=== PATIENT | female | born 1940 | race Caucasian/White ===

== ENCOUNTER 2018-05-10 20:22 | Emergency (ER) | payer OTHER ==
[~2018-05-10] VITALS: Ht 154.9 cm; Wt 81.6 kg
[~2018-05-10 20:22] MED LIST: TRAM50TA92 PO
[2018-05-10 20:30] VITALS: BP_SYST 127
--- NOTE | 2018-05-10 21:05 | NUR ---
Patient to ER hallway bed for evaluation. Side rails up. Report given to Tori CUETO.
--- NOTE | 2018-05-10 21:10 | NUR ---
Patient BIB son to ED to be evaluated for redness and pain to R eye, 03/07. The patient states that she felt a sharp pain to her right eye while cooking. Pt denies vision changes, no headache, no N&V. No SOB or acute distress noted. Pt VSS. No other complaints at this time. Will continue to monitor
--- NOTE | 2018-05-10 21:10 | NUR ---
Note mary in EDM - 05/11/18 at 0058 by ZAHIRA Patient BIB son to ED to be evaluated for redness and pain to R eye. The patient states that she felt a sharp pain to her right eye while cooking. Pt denies vision changes, no N&V. No SOB or acute distress noted. No other complaints at this time. Will continue to monitor.
--- NOTE | 2018-05-10 21:31 | NUR ---
ER Dr. Bacon at bedside examining patient.
[2018-05-10 22:09] LABS: PROTHROMBIN TIME 38.4 SECS (9.5-12.5)
[2018-05-10 22:10] LABS: INR 3.7 (0.8-1.2)
--- NOTE | 2018-05-10 22:20 | NUR ---
Patient resting quietly in bed. Pt denies SOB or any discomfort. No SOB or acute distress noted. Pt's son at bedside. Will continue to monitor.
[2018-05-10 23:20] VITALS: BP_SYST 118
--- NOTE | 2018-05-10 23:20 | NUR ---
Patient given written and verbal discharge instructions and verbalizes understanding. ER MD discussed with patient the results and treatment provided. Patient in stable condition. ID arm band removed. Patient educated on pain management and to follow up with PMD. Pain Scale 3/10, pain tolerable per pt. Opportunity for questions provided and answered.
== END 2018-05-10 23:20 | disposition home or self-care (01) ==
LOC: SED 20:22
DX: K21.9 Gastro-esophageal reflux disease without esophagitis (principal); Z87.01 Personal history of pneumonia (recurrent); Z88.6 Allergy status to analgesic agent; Z88.5 Allergy status to narcotic agent; Z88.0 Allergy status to penicillin
CPT/HCPCS: 36415; 70450-TC; 85610-TC; 99285

== ENCOUNTER 2018-05-26 12:40 | Emergency (ER) | payer OTHER ==
[~2018-05-26] VITALS: Ht 162.6 cm; Wt 87.5 kg
[2018-05-26 12:51] VITALS: BP_SYST 128
[2018-05-26 13:36] LABS: BILIRUBIN,URINE NEGATIVE (NEGATIVE); BLOOD, URINE 3+ (NEGATIVE); CLARITY/URINE CLEAR (CLEAR); COLOR,URINE YELLOW (YELLOW); GLUCOSE,URINE TRACE (NEGATIVE); KETONES,URINE NEGATIVE (NEGATIVE); LEUKOCYTE ESTERASE ,URINE 2+ (NEGATIVE); NITRITE, URINE POSITIVE (NEGATIVE); PROTEIN URINE 2+ (NEGATIVE)
[2018-05-26] MEDS ORDERED: IBUPROFEN 600 MG TABLET PO ONE (13:45)
[2018-05-26 13:46] LABS: BACTERIA,URINE MANY /HPF (None Seen); RBC,URINE 50-80 /HPF (0-3); WBC,URINE 80-100 /HPF (0-3)
[2018-05-26 13:47] LABS: MUCUS,URINE None Seen /LPF (None Seen); YEAST,URINE None Seen /HPF (None Seen)
[2018-05-26] MEDS ORDERED: cefTRIAXone 1 GM VIAL IM ONE (14:00)
[2018-05-26] MEDS ORDERED: LIDOCAINE 1%, 20 ML MDV 20 ML ONE (14:07)
[2018-05-26 14:30] VITALS: BP_SYST 112
== END 2018-05-26 14:30 | disposition home or self-care (01) ==
LOC: SED 12:40
DX: N39.0 Urinary tract infection, site not specified (principal); K21.9 Gastro-esophageal reflux disease without esophagitis; R03.0 Elevated blood-pressure reading, without diagnosis of hypertension; M19.90 Unspecified osteoarthritis, unspecified site; Z88.0 Allergy status to penicillin; Z88.5 Allergy status to narcotic agent; Z88.6 Allergy status to analgesic agent
CPT/HCPCS: 81000; 87086; 96372; 99284; J0696; J2001; 87186-TC

== ENCOUNTER 2019-03-14 14:40 | Emergency (ER) | payer OTHER ==
[~2019-03-14] VITALS: Ht 162.6 cm; Wt 84.8 kg
[2019-03-14 15:21] VITALS: BP_SYST 123
[2019-03-14 18:01] VITALS: BP_SYST 123
== END 2019-03-14 18:00 | disposition home or self-care (01) ==
LOC: SED 14:40
DX: T18.9XXA Foreign body of alimentary tract, part unspecified, initial encounter (principal); K21.9 Gastro-esophageal reflux disease without esophagitis; E78.00 Pure hypercholesterolemia, unspecified; J18.9 Pneumonia, unspecified organism; Z88.0 Allergy status to penicillin; Z88.5 Allergy status to narcotic agent; Z88.6 Allergy status to analgesic agent; X58.XXXA Exposure to other specified factors, initial encounter; Y93.89 Activity, other specified; Y92.89 Other specified places as the place of occurrence of the external cause; Y99.8 Other external cause status
CPT/HCPCS: 72170-TC; 74021; 99283

== ENCOUNTER 2021-08-02 14:21 | Emergency (ER) | payer OTHER, SELFPAY ==
[~2021-08-02] VITALS: Ht 167.6 cm; Wt 90.7 kg
[2021-08-02 14:35] VITALS: BP_SYST 108
--- NOTE | 2021-08-02 14:35 | NUR ---
Patient triaged and placed in waiting room. VSS and patient appears in no acute distress at this time. Accompanied by FAMILY, awaiting available bed, and MD notified of need for MSE.
--- NOTE | 2021-08-02 14:45 | NUR ---
PT STATES SHE TESTED POSITIVE FOR COVID LAST NIGHT AND WOULD LIKE ANOTHER TEST TODAY. PT STATES SHE HAS A COUGH, EXPLAINED TO PT THAT SINCE IT READ POSITIVE, THAT SHE IS POSITIVE. PT DEMANDING TO HAVE ANOTHER TEST. WHOLE FAMILY IS HERE FOR SAME.
--- NOTE | 2021-08-02 17:47 | NUR ---
AWAITING TO BE SEEN BY MD, NO NEW COMPLAINTS
--- NOTE | 2021-08-02 21:30 | NUR ---
Called patient in, no answer. Patient left without being seen. ER MD aware
== END 2021-08-02 21:30 | disposition left against medical advice (07) ==
LOC: SED 14:21
DX: R05.9 Cough, unspecified (principal); Z53.21 Procedure and treatment not carried out due to patient leaving prior to being seen by health care provider

== ENCOUNTER 2022-08-16 14:49 | Emergency (ER) | payer OTHER ==
[~2022-08-16] VITALS: Ht 165.1 cm; Wt 79.4 kg
[2022-08-16 14:59] VITALS: BP_SYST 142
[2022-08-16] MEDS ORDERED: KETOROLAC TROMETHAMINE 60 MG/2 ML VIAL IM ONE (16:00)
[2022-08-16] MEDS ORDERED: HYDROcodone/ACETAMIN 7.5-325 MG TAB PO ONE (16:00)
[2022-08-16 16:32] LABS: BASOPHILS % (AUTO) 0.9 % (0.0-2.0); EOSINOPHILS # (AUTO) 0.1 K/uL (0.0-0.4); EOSINOPHILS % (AUTO) 1.8 % (0.0-4.0); HEMATOCRIT 24.2 % (36-48); HEMOGLOBIN 7.4 g/dL (12.0-16.0); LYMPHOCYTES # (AUTO) 1.3 K/uL (1.0-5.5); LYMPHOCYTES % (AUTO) 25.3 % (20.5-51.5); MEAN CORPUSCULAR HEMOGLOBIN 23 pg (27-31); MEAN CORPUSCULAR HGB CONC 31 % (32-36); MEAN CORPUSCULAR VOLUME 74 fL (79.0-98.0); MONOCYTES # (AUTO) 0.5 K/uL (0.0-1.0); NEUTROPHILS # (AUTO) 3.1 K/uL (1.8-7.7); PLATELET COUNT (AUTO) 307 K/uL (130-430); RED BLOOD CELL COUNT(AUTO) 3.28 MIL/uL (4.2-6.2); RED CELL DISTRIBUTION WIDTH 20.8 % (9.0-15.0); WHITE BLOOD COUNT (AUTO) 4.9 K/uL (4.8-10.8)
[2022-08-16 16:56] LABS: ANION GAP 6 (5-15); CALCIUM 8.7 mg/dL (8.4-11.0); CHLORIDE 108 mmol/L (98-107); CREATININE 0.99 mg/dL (0.55-1.30); GLUCOSE 127 mg/dL (70-99); UREA NITROGEN, BLOOD 21 mg/dL (8-21)
[2022-08-16 17:02] LABS: ALANINE AMINOTRANSFERASE 18 U/L (12-78); ALBUMIN 3.5 g/dL (3.4-4.8); ASPARTATE AMINOTRANSFERASE 19 U/L (10-37); TOTAL BILIRUBIN 0.4 mg/dL (0.0-1.0)
[2022-08-16 17:08] LABS: C-REACTIVE PROTEIN QUANT < 0.2 mg/dL (0-0.5); ERYTHROCYTE SEDIMENTATION RATE 25 MM/HR (0-20)
[2022-08-16] MEDS ORDERED: HYDR-3917 PO (17:37)
[2022-08-16] MEDS ORDERED: HYDR-3921 PO (17:42)
[2022-08-16 17:51] VITALS: BP_SYST 142
== END 2022-08-16 17:51 | disposition home or self-care (01) ==
LOC: SED 14:49
DX: S23.3XXA Sprain of ligaments of thoracic spine, initial encounter (principal); K21.9 Gastro-esophageal reflux disease without esophagitis; Z88.0 Allergy status to penicillin; Z88.5 Allergy status to narcotic agent; Z79.899 Other long term (current) drug therapy; X58.XXXA Exposure to other specified factors, initial encounter; Y93.89 Activity, other specified; Y92.89 Other specified places as the place of occurrence of the external cause; Y99.8 Other external cause status
CPT/HCPCS: 99285; 71250; 80053; 85025; 85651; 86140; 84484; 36415; 76376; 96372; J1885

== ENCOUNTER 2022-08-18 13:53 | Emergency (ER) | payer OTHER ==
[~2022-08-18] VITALS: Ht 165.1 cm; Wt 83.9 kg
[~2022-08-18 13:53] MED LIST changes: +HYDR-3917 PO; +HYDR-3921 PO
[2022-08-18 14:49] VITALS: BP_SYST 124
[2022-08-18 15:50] LABS: BASOPHILS % (AUTO) 0.8 % (0.0-2.0); EOSINOPHILS # (AUTO) 0.1 K/uL (0.0-0.4); EOSINOPHILS % (AUTO) 3.3 % (0.0-4.0); HEMATOCRIT 23.4 % (36-48); MEAN CORPUSCULAR HEMOGLOBIN 23 pg (27-31); MEAN CORPUSCULAR HGB CONC 31 % (32-36); MEAN CORPUSCULAR VOLUME 73 fL (79.0-98.0); MONOCYTES # (AUTO) 0.4 K/uL (0.0-1.0); MONOCYTES % (AUTO) 11.7 % (1.7-9.3); NEUTROPHILS % (AUTO) 56.2 % (40.0-70.0); PLATELET COUNT (AUTO) 300 K/uL (130-430); RED CELL DISTRIBUTION WIDTH 20.6 % (9.0-15.0); WHITE BLOOD COUNT (AUTO) 3.6 K/uL (4.8-10.8)
[2022-08-18 15:52] LABS: ANION GAP 5 (5-15); CALCIUM 8.4 mg/dL (8.4-11.0); CHLORIDE 109 mmol/L (98-107); CREATININE 1.07 mg/dL (0.55-1.30); GLUCOSE 125 mg/dL (70-99); UREA NITROGEN, BLOOD 16 mg/dL (8-21)
[2022-08-18 15:57] LABS: HEMOGLOBIN 7.2 g/dL (12.0-16.0)
[2022-08-18 15:58] LABS: ALANINE AMINOTRANSFERASE 19 U/L (12-78); ALBUMIN 3.5 g/dL (3.4-4.8); ASPARTATE AMINOTRANSFERASE 18 U/L (10-37); TOTAL BILIRUBIN 0.5 mg/dL (0.0-1.0)
[2022-08-18 16:00] LABS: INR 3.2 (0.8-1.2)
[2022-08-19 00:06] VITALS: BP_SYST 138
== END 2022-08-19 00:06 | disposition home or self-care (01) ==
LOC: SED 13:53
DX: D50.9 Iron deficiency anemia, unspecified (principal); D72.819 Decreased white blood cell count, unspecified; R10.11 Right upper quadrant pain; K21.9 Gastro-esophageal reflux disease without esophagitis; Z88.0 Allergy status to penicillin; Z88.5 Allergy status to narcotic agent; Z79.01 Long term (current) use of anticoagulants; Z79.899 Other long term (current) drug therapy
CPT/HCPCS: 99285; 36430; 80053; 85025; 85610; 85730; 86886; 86900; 86901; 86920; 36415; P9021

== ENCOUNTER 2022-11-14 16:11 | Emergency (ER) | payer OTHER ==
[~2022-11-14] VITALS: Ht 167.6 cm; Wt 84.4 kg
[~2022-11-14 16:11] MED LIST changes: -HYDR-3917 PO
[2022-11-14 16:21] VITALS: BP_SYST 146
[2022-11-14 17:08] LABS: BASOPHILS % (AUTO) 0.8 % (0.0-2.0); EOSINOPHILS # (AUTO) 0.1 K/uL (0.0-0.4); EOSINOPHILS % (AUTO) 2.5 % (0.0-4.0); HEMATOCRIT 31.6 % (36-48); HEMOGLOBIN 10.1 g/dL (12.0-16.0); LYMPHOCYTES # (AUTO) 0.9 K/uL (1.0-5.5); LYMPHOCYTES % (AUTO) 23.9 % (20.5-51.5); MEAN CORPUSCULAR HEMOGLOBIN 26 pg (27-31); MEAN CORPUSCULAR HGB CONC 32 % (32-36); MEAN CORPUSCULAR VOLUME 81 fL (79.0-98.0); MONOCYTES # (AUTO) 0.4 K/uL (0.0-1.0); MONOCYTES % (AUTO) 10.9 % (1.7-9.3); NEUTROPHILS # (AUTO) 2.3 K/uL (1.8-7.7); NEUTROPHILS % (AUTO) 61.9 % (40.0-70.0); PLATELET COUNT (AUTO) 186 K/uL (130-430); RED BLOOD CELL COUNT(AUTO) 3.89 MIL/uL (4.2-6.2); RED CELL DISTRIBUTION WIDTH 27.4 % (9.0-15.0); WHITE BLOOD COUNT (AUTO) 3.8 K/uL (4.8-10.8)
[2022-11-14 17:09] LABS: ANION GAP 5 (5-15); CALCIUM 8.2 mg/dL (8.4-11.0); CHLORIDE 106 mmol/L (98-107); CREATININE 1.17 mg/dL (0.55-1.30); GLUCOSE 137 mg/dL (70-99); UREA NITROGEN, BLOOD 24 mg/dL (8-21)
[2022-11-14 17:24] LABS: ALANINE AMINOTRANSFERASE 20 U/L (12-78); ALBUMIN 3.5 g/dL (3.4-4.8); ASPARTATE AMINOTRANSFERASE 16 U/L (10-37); TOTAL BILIRUBIN 0.4 mg/dL (0.0-1.0)
[2022-11-14 17:55] LABS: PROTHROMBIN TIME 19.7 SECS (9.5-12.5)
[2022-11-14 19:30] VITALS: BP_SYST 135
[2022-11-14] MEDS ORDERED: IBUPROFEN 600 MG TABLET PO ONE (19:30)
== END 2022-11-14 19:30 | disposition home or self-care (01) ==
LOC: SED 16:11
DX: R07.81 Pleurodynia (principal); M54.50 Low back pain, unspecified; K21.9 Gastro-esophageal reflux disease without esophagitis; Z88.0 Allergy status to penicillin; Z88.5 Allergy status to narcotic agent; Z79.899 Other long term (current) drug therapy; W01.0XXA Fall on same level from slipping, tripping and stumbling without subsequent striking against object, initial encounter; Y93.89 Activity, other specified; Y92.89 Other specified places as the place of occurrence of the external cause; Y99.8 Other external cause status
CPT/HCPCS: 36415; 70450-TC; 71100; 76376; 80053; 85025; 85610-TC; 99284

== ENCOUNTER 2024-01-16 14:50 | Emergency (ER) | payer OTHER ==
[~2024-01-16] VITALS: Ht 157.5 cm; Wt 83.9 kg
[2024-01-16 14:50] VITALS: BP_SYST 155; PULSE 76; RESP 20; TEMP 97.1; O2SAT 97
[~2024-01-16 14:50] MED LIST changes: +ATOR10TA68 PO; +DOXY100C5 PO; +DULO60CA65 PO; -HYDR-3921 PO; +PANT40TA45 PO; -TRAM50TA92 PO; +VIS10 PO; +WARF-52 PO
[2024-01-16 15:49] LABS: BASOPHILS % (AUTO) 1.2 % (0.0-2.0); EOSINOPHILS # (AUTO) 0.1 K/uL (0.0-0.4); EOSINOPHILS % (AUTO) 2.1 % (0.0-4.0); HEMATOCRIT 26.5 % (36-48); HEMOGLOBIN 8.4 g/dL (12.0-16.0); LYMPHOCYTES # (AUTO) 1.1 K/uL (1.0-5.5); LYMPHOCYTES % (AUTO) 30.5 % (20.5-51.5); MEAN CORPUSCULAR HEMOGLOBIN 24 pg (27-31); MEAN CORPUSCULAR HGB CONC 32 % (32-36); MEAN CORPUSCULAR VOLUME 76 fL (79.0-98.0); MONOCYTES # (AUTO) 0.4 K/uL (0.0-1.0); MONOCYTES % (AUTO) 11.5 % (1.7-9.3); NEUTROPHILS # (AUTO) 1.9 K/uL (1.8-7.7); NEUTROPHILS % (AUTO) 54.7 % (40.0-70.0); PLATELET COUNT (AUTO) 254 K/uL (130-430); RED BLOOD CELL COUNT(AUTO) 3.49 MIL/uL (4.2-6.2); RED CELL DISTRIBUTION WIDTH 18.4 % (9.0-15.0); WHITE BLOOD COUNT (AUTO) 3.5 K/uL (4.8-10.8)
[2024-01-16 15:58] LABS: ANION GAP 8 (5-15); CALCIUM 8.4 mg/dL (8.4-11.0); CARBON DIOXIDE 26 mmol/L (23-29); CHLORIDE 106 mmol/L (98-107); GLUCOSE 115 mg/dL (74-106); POTASSIUM 3.9 mmol/L (3.5-5.1); SODIUM SERUM 140 mmol/L (136-145); UREA NITROGEN, BLOOD 17 mg/dL (8-21)
[2024-01-16 17:50] LABS: INR 1.5 (0.8-1.2); PROTHROMBIN TIME 15.1 SECS (9.5-12.5)
[2024-01-16 18:42] LABS: HYPOCHROMASIA 1+
[2024-01-16 18:43] LABS: ANISOCYTOSIS 1+; OVALOCYTES FEW; STOMATOCYTES FEW; TARGET CELLS FEW
[2024-01-17 00:35] VITALS: BP_SYST 139; PULSE 75; RESP 20; TEMP 97; O2SAT 95
== END 2024-01-17 00:35 | disposition home or self-care (01) ==
LOC: SED 14:50
DX: D64.9 Anemia, unspecified (principal); R55 Syncope and collapse; R53.83 Other fatigue; K21.9 Gastro-esophageal reflux disease without esophagitis; I10 Essential (primary) hypertension; Z90.49 Acquired absence of other specified parts of digestive tract; Z88.0 Allergy status to penicillin; Z88.6 Allergy status to analgesic agent; Z88.5 Allergy status to narcotic agent; Z79.899 Other long term (current) drug therapy; Z79.2 Long term (current) use of antibiotics; Z79.02 Long term (current) use of antithrombotics/antiplatelets
CPT/HCPCS: 99285; 36430; 71045; 80048; 83880; 85025; 85610; 85730; 86886; 86900; 86901; 84484; 86920; 36415; 93005; P9021

== ENCOUNTER 2024-02-10 16:11 | Inpatient (IN) | payer OTHER ==
[~2024-02-10] VITALS: Ht 165.1 cm; Wt 88.2 kg
[2024-02-10 16:35] VITALS: BP_SYST 112; PULSE 83; RESP 17; TEMP 97; O2SAT 95
[2024-02-10 17:36] LABS: BASOPHILS % (AUTO) 1.1 % (0.0-2.0); EOSINOPHILS # (AUTO) 0.1 K/uL (0.0-0.4); EOSINOPHILS % (AUTO) 2.4 % (0.0-4.0); HEMATOCRIT 23.6 % (36-48); HEMOGLOBIN 7.6 g/dL (12.0-16.0); LYMPHOCYTES # (AUTO) 1.2 K/uL (1.0-5.5); LYMPHOCYTES % (AUTO) 27.5 % (20.5-51.5); MEAN CORPUSCULAR HEMOGLOBIN 26 pg (27-31); MEAN CORPUSCULAR HGB CONC 32 % (32-36); MEAN CORPUSCULAR VOLUME 80 fL (79.0-98.0); MONOCYTES # (AUTO) 0.5 K/uL (0.0-1.0); MONOCYTES % (AUTO) 10.8 % (1.7-9.3); NEUTROPHILS # (AUTO) 2.6 K/uL (1.8-7.7); NEUTROPHILS % (AUTO) 58.2 % (40.0-70.0); PLATELET COUNT (AUTO) 229 K/uL (130-430); RED BLOOD CELL COUNT(AUTO) 2.93 MIL/uL (4.2-6.2); RED CELL DISTRIBUTION WIDTH 21.6 % (9.0-15.0); WHITE BLOOD COUNT (AUTO) 4.4 K/uL (4.8-10.8)
[2024-02-10 17:48] LABS: ALANINE AMINOTRANSFERASE 20 U/L (12-78); ALBUMIN 3.2 g/dL (3.4-4.8); ANION GAP 9 (5-15); ASPARTATE AMINOTRANSFERASE 25 U/L (10-37); BILIRUBIN,DIRECT 0.1 mg/dL (0.0-0.3); CALCIUM 8.2 mg/dL (8.4-11.0); CARBON DIOXIDE 24 mmol/L (23-29); CHLORIDE 110 mmol/L (98-107); CREATININE 0.89 mg/dL (0.55-1.30); GLUCOSE 108 mg/dL (74-106); LIPASE 47 U/L (16-77); POTASSIUM 4.1 mmol/L (3.5-5.1); SODIUM SERUM 143 mmol/L (136-145); TOTAL BILIRUBIN 0.4 mg/dL (0.0-1.0); TOTAL PROTEIN, SERUM 6.8 g/dL (6.4-8.3); UREA NITROGEN, BLOOD 16 mg/dL (8-21)
[2024-02-10 17:51] LABS: INR 3.9 (0.8-1.2); PROTHROMBIN TIME 38.4 SECS (9.5-12.5)
[2024-02-10 20:22] LABS: BILIRUBIN,URINE NEGATIVE (NEGATIVE); BLOOD, URINE NEGATIVE (NEGATIVE); CLARITY/URINE CLEAR (CLEAR); COLOR,URINE YELLOW (YELLOW); GLUCOSE,URINE NEGATIVE (NEGATIVE); KETONES,URINE NEGATIVE (NEGATIVE); LEUKOCYTE ESTERASE ,URINE NEGATIVE (NEGATIVE); NITRITE, URINE NEGATIVE (NEGATIVE); PH,URINE 6.5 (5.0-8.0); PROTEIN URINE NEGATIVE (NEGATIVE); UROBILINOGEN,URINE 0.2 (0.2-1.0)
[2024-02-10] MEDS ORDERED: ONDANSETRON HCL 4 MG/2 ML VIAL IVP PRN (21:15)
[2024-02-10] MEDS ORDERED: HYDROcodone/ACETAMIN 5-325 MG TAB (NORCO/ VICODIN) PO PRN (21:15)
[2024-02-10] MEDS ORDERED: ALBUTEROL SULFATE 0.083% 2.5 MG/3 ML VIAL.NEB INH PRN (21:15)
[2024-02-10] MEDS ORDERED: MORPHINE 2 MG/ML INJ. SYRINGE IVP PRN (21:15)
[2024-02-10 21:33] VITALS: BP_SYST 112; PULSE 83; O2SAT 95
[2024-02-10] MEDS: PANTOPRAZOLE SODIUM 40 MG/VIAL (PROTONIX) IVP SCH (21:38)
[2024-02-11] VITALS (9 sets, daily range): BP systolic 118–153; PULSE 79–85; RESP 16–20; TEMP 97.3–97.9; O2SAT 95–98
[2024-02-11 07:58] LABS: BASOPHILS % (AUTO) 0.7 % (0.0-2.0); EOSINOPHILS # (AUTO) 0.2 K/uL (0.0-0.4); EOSINOPHILS % (AUTO) 3.8 % (0.0-4.0); HEMATOCRIT 23.9 % (36-48); HEMOGLOBIN 7.4 g/dL (12.0-16.0); LYMPHOCYTES # (AUTO) 1.3 K/uL (1.0-5.5); LYMPHOCYTES % (AUTO) 31.7 % (20.5-51.5); MEAN CORPUSCULAR HEMOGLOBIN 25 pg (27-31); MEAN CORPUSCULAR HGB CONC 31 % (32-36); MEAN CORPUSCULAR VOLUME 81 fL (79.0-98.0); MONOCYTES # (AUTO) 0.4 K/uL (0.0-1.0); MONOCYTES % (AUTO) 10.5 % (1.7-9.3); NEUTROPHILS # (AUTO) 2.2 K/uL (1.8-7.7); NEUTROPHILS % (AUTO) 53.3 % (40.0-70.0); PLATELET COUNT (AUTO) 244 K/uL (130-430); RED BLOOD CELL COUNT(AUTO) 2.95 MIL/uL (4.2-6.2); RED CELL DISTRIBUTION WIDTH 22.4 % (9.0-15.0); WHITE BLOOD COUNT (AUTO) 4.1 K/uL (4.8-10.8)
[2024-02-11 08:11] LABS: ALANINE AMINOTRANSFERASE 18 U/L (12-78); ANION GAP 6 (5-15); ASPARTATE AMINOTRANSFERASE 14 U/L (10-37); CALCIUM 8.4 mg/dL (8.4-11.0); CARBON DIOXIDE 28 mmol/L (23-29); CHLORIDE 113 mmol/L (98-107); CREATININE 0.91 mg/dL (0.55-1.30); GLUCOSE 113 mg/dL (74-106); SODIUM SERUM 147 mmol/L (136-145); TOTAL BILIRUBIN 0.4 mg/dL (0.0-1.0); TOTAL PROTEIN, SERUM 6.3 g/dL (6.4-8.3); UREA NITROGEN, BLOOD 11 mg/dL (8-21)
[2024-02-11] MEDS ORDERED: PHYTONADIONE Non-Formulary 5 MG TABLET PO ONE (08:45)
[2024-02-11] MEDS: PHYTONADIONE (Vitamin K) Oral Solution PO ONE (09:42)
[2024-02-11 11:31] LABS: INR 3.2 (0.8-1.2)
[2024-02-11] MEDS: LOSARTAN POTASSIUM 25 MG TABLET PO ONE (12:36)
[2024-02-11] MEDS: NACL 0.9% 1,000 ML IV ONE (15:35)
[2024-02-11] MEDS ORDERED: OFLOXACIN 0.3% OPHTHALMIC DROPS 5 ML OP SCH (17:00)
[2024-02-11] MEDS ORDERED: DULoxetine HCL 30 MG CAPSULE.DR (CYMBALTA) PO SCH (21:00)
[2024-02-11] MEDS: DULoxetine HCL 30 MG CAPSULE.DR (CYMBALTA) PO SCH (21:26)
[2024-02-11] MEDS: CIPROFLOXACIN HCL 0.3% EYE DRP 2.5 ML DROPS OP SCH (21:27)
[2024-02-12] VITALS (7 sets, daily range): BP systolic 117–128; PULSE 77–83; RESP 14–20; TEMP 97.1–98.4; O2SAT 95–100
[2024-02-12 08:42] LABS: BASOPHILS % (AUTO) 0.8 % (0.0-2.0); EOSINOPHILS # (AUTO) 0.1 K/uL (0.0-0.4); EOSINOPHILS % (AUTO) 3.7 % (0.0-4.0); HEMATOCRIT 23.1 % (36-48); HEMOGLOBIN 7.3 g/dL (12.0-16.0); LYMPHOCYTES # (AUTO) 1.2 K/uL (1.0-5.5); LYMPHOCYTES % (AUTO) 33.6 % (20.5-51.5); MEAN CORPUSCULAR HEMOGLOBIN 26 pg (27-31); MEAN CORPUSCULAR HGB CONC 32 % (32-36); MEAN CORPUSCULAR VOLUME 81 fL (79.0-98.0); MONOCYTES # (AUTO) 0.4 K/uL (0.0-1.0); MONOCYTES % (AUTO) 11.5 % (1.7-9.3); NEUTROPHILS # (AUTO) 1.8 K/uL (1.8-7.7); NEUTROPHILS % (AUTO) 50.4 % (40.0-70.0); PLATELET COUNT (AUTO) 247 K/uL (130-430); RED BLOOD CELL COUNT(AUTO) 2.86 MIL/uL (4.2-6.2); RED CELL DISTRIBUTION WIDTH 22.1 % (9.0-15.0); WHITE BLOOD COUNT (AUTO) 3.5 K/uL (4.8-10.8)
[2024-02-12 08:46] LABS: INR 1.4 (0.8-1.2); PROTHROMBIN TIME 13.8 SECS (9.5-12.5)
[2024-02-12] MEDS: LOSARTAN POTASSIUM 25 MG TABLET PO SCH (09:00)
[2024-02-12 09:09] LABS: ALANINE AMINOTRANSFERASE 19 U/L (12-78); ALBUMIN 2.9 g/dL (3.4-4.8); ANION GAP 7 (5-15); ASPARTATE AMINOTRANSFERASE 15 U/L (10-37); CALCIUM 8.2 mg/dL (8.4-11.0); CARBON DIOXIDE 27 mmol/L (23-29); CHLORIDE 112 mmol/L (98-107); CREATININE 0.85 mg/dL (0.55-1.30); GLUCOSE 101 mg/dL (74-106); POTASSIUM 3.7 mmol/L (3.5-5.1); SODIUM SERUM 146 mmol/L (136-145); TOTAL PROTEIN, SERUM 5.9 g/dL (6.4-8.3); UREA NITROGEN, BLOOD 8 mg/dL (8-21)
[2024-02-12 09:26] LABS: ANISOCYTOSIS 1+; HYPOCHROMASIA 3+
[2024-02-12 09:52] LABS: TOTAL BILIRUBIN 0.8 mg/dL (0.0-1.0)
[2024-02-12] MEDS: fentaNYL CITRATE/PF 100 MCG/2 ML AMP ONE (12:35)
[2024-02-12] MEDS: BENZOCAINE 20% 0.5mL UD SPRAY MM ONE (12:36)
[2024-02-12] MEDS: MIDAZOLAM HCL 5 MG/5 ML VIAL ONE (12:36)
[2024-02-12 14:49] LABS: TOTAL IRON BIND. CAPACITY 363 ug/dL (250-450)
[2024-02-12] MEDS: WARFARIN SODIUM 4 MG TABLET PO SCH (17:00)
[2024-02-13] VITALS (9 sets, daily range): BP systolic 108–127; PULSE 76–85; RESP 15–21; TEMP 96.3–97.7; O2SAT 95–100
[2024-02-13 06:29] LABS: INR 1.1 (0.8-1.2); PROTHROMBIN TIME 11.6 SECS (9.5-12.5)
[2024-02-13 06:36] LABS: TOTAL IRON BIND. CAPACITY 360 ug/dL (250-450)
[2024-02-13 06:42] LABS: BASOPHILS % (AUTO) 0.8 % (0.0-2.0); EOSINOPHILS # (AUTO) 0.1 K/uL (0.0-0.4); EOSINOPHILS % (AUTO) 3.4 % (0.0-4.0); HEMATOCRIT 22.6 % (36-48); HEMOGLOBIN 7.2 g/dL (12.0-16.0); LYMPHOCYTES # (AUTO) 1.1 K/uL (1.0-5.5); LYMPHOCYTES % (AUTO) 28.7 % (20.5-51.5); MEAN CORPUSCULAR HEMOGLOBIN 26 pg (27-31); MEAN CORPUSCULAR HGB CONC 32 % (32-36); MEAN CORPUSCULAR VOLUME 80 fL (79.0-98.0); MONOCYTES # (AUTO) 0.4 K/uL (0.0-1.0); MONOCYTES % (AUTO) 11.4 % (1.7-9.3); NEUTROPHILS % (AUTO) 55.7 % (40.0-70.0); PLATELET COUNT (AUTO) 266 K/uL (130-430); RED BLOOD CELL COUNT(AUTO) 2.82 MIL/uL (4.2-6.2); RED CELL DISTRIBUTION WIDTH 21.7 % (9.0-15.0); WHITE BLOOD COUNT (AUTO) 3.7 K/uL (4.8-10.8)
[2024-02-13 07:05] LABS: ALANINE AMINOTRANSFERASE 21 U/L (12-78); ANION GAP 5 (5-15); ASPARTATE AMINOTRANSFERASE 17 U/L (10-37); CALCIUM 8.5 mg/dL (8.4-11.0); CARBON DIOXIDE 29 mmol/L (23-29); CHLORIDE 110 mmol/L (98-107); CREATININE 0.92 mg/dL (0.55-1.30); GLUCOSE 120 mg/dL (74-106); POTASSIUM 3.6 mmol/L (3.5-5.1); SODIUM SERUM 144 mmol/L (136-145); TOTAL BILIRUBIN 0.7 mg/dL (0.0-1.0); TOTAL PROTEIN, SERUM 6.3 g/dL (6.4-8.3); UREA NITROGEN, BLOOD 7 mg/dL (8-21)
[2024-02-13 07:33] LABS: RETICULOCYTE COUNT 3.4 % (0.5-1.5)
[2024-02-13] MEDS: SOD FERRIC GLUC COMPLEX/SUC 125 MG in NS 100 ML IV SCH (21:42)
[2024-02-14] VITALS (7 sets, daily range): BP systolic 124–135; PULSE 81–83; RESP 15–20; TEMP 96.2–97.6; O2SAT 94–99
[2024-02-14 06:36] LABS: EOSINOPHILS # (AUTO) 0.1 K/uL (0.0-0.4); EOSINOPHILS % (AUTO) 3.5 % (0.0-4.0); HEMATOCRIT 26.6 % (36-48); HEMOGLOBIN 8.5 g/dL (12.0-16.0); LYMPHOCYTES % (AUTO) 28.2 % (20.5-51.5); MEAN CORPUSCULAR HEMOGLOBIN 26 pg (27-31); MEAN CORPUSCULAR HGB CONC 32 % (32-36); MEAN CORPUSCULAR VOLUME 82 fL (79.0-98.0); MONOCYTES # (AUTO) 0.4 K/uL (0.0-1.0); MONOCYTES % (AUTO) 11.8 % (1.7-9.3); NEUTROPHILS % (AUTO) 55.5 % (40.0-70.0); PLATELET COUNT (AUTO) 253 K/uL (130-430); RED BLOOD CELL COUNT(AUTO) 3.24 MIL/uL (4.2-6.2); RED CELL DISTRIBUTION WIDTH 21.3 % (9.0-15.0); WHITE BLOOD COUNT (AUTO) 3.7 K/uL (4.8-10.8)
[2024-02-14 06:39] LABS: INR 1.1 (0.8-1.2)
[2024-02-14] MEDS ORDERED: WARF4TAB72 PO (14:23)
[2024-02-14] MEDS ORDERED: TAMS-11 PO (15:08)
[2024-02-14] MEDS ORDERED: WARF1TAB84 PO (15:11)
[2024-02-14] MEDS ORDERED: WARFARIN SODIUM 5 MG TABLET PO SCH (18:00)
== END 2024-02-14 16:10 | disposition home or self-care (01) | DRG 811 ==
LOC: SED 16:11 → STU 21:03
PROVIDERS: ADMIT Family Medicine; ATTEND Family Medicine
PROC: 0W3P8ZZ Control Bleeding in Gastrointestinal Tract, Via Natural or Artificial Opening Endoscopic (ICD-10-PCS; principal; 2024-02-12 13:30)
PROC: 0DB68ZX Excision of Stomach, Via Natural or Artificial Opening Endoscopic, Diagnostic (ICD-10-PCS; 2024-02-12 13:30)
PROC: 30233N1 Transfusion of Nonautologous Red Blood Cells into Peripheral Vein, Percutaneous Approach (ICD-10-PCS; 2024-02-13)
DX: D62 Acute posthemorrhagic anemia (principal); K31.811 Angiodysplasia of stomach and duodenum with bleeding; Q43.8 Other specified congenital malformations of intestine; D68.61 Antiphospholipid syndrome; D50.9 Iron deficiency anemia, unspecified; I10 Essential (primary) hypertension; K44.9 Diaphragmatic hernia without obstruction or gangrene; K21.9 Gastro-esophageal reflux disease without esophagitis; T45.515A Adverse effect of anticoagulants, initial encounter; E78.5 Hyperlipidemia, unspecified; E83.51 Hypocalcemia; H10.89 Other conjunctivitis; D72.819 Decreased white blood cell count, unspecified; Z88.0 Allergy status to penicillin; Z88.5 Allergy status to narcotic agent; Z88.8 Allergy status to other drugs, medicaments and biological substances; Z79.899 Other long term (current) drug therapy; Z79.01 Long term (current) use of anticoagulants; Y92.89 Other specified places as the place of occurrence of the external cause
CPT/HCPCS: 36415; 43239; 43255; 70450-TC; 80048; 80053; 80076; 81001; 81003; 83540; 83550; 83690; 85025; 85044; 85610; 86886; 86900; 86901; 86920; 87045-TC; 87046; 87081; 87177; 88305; 88312; 88313; 89055; 93306; 94070; 97112-GP; 97116-GP; 99285; G0378; J2250; J2470; J2916; J3010; J3430; P9021